=== PATIENT | male | born 1970 | race Caucasian/White ===

== ENCOUNTER 2016-09-29 13:00 | Inpatient (IN) | payer BC, OTHER ==
[~2016-09-29] VITALS: Ht 167.6 cm; Wt 59.0 kg
--- NOTE | 2016-09-29 17:47 | NUR ---
pre-assessment: assessed pt in intake office. pt appeared intoxicated, pt with complaints of stomach and chest discomfort. relayed to pt's state. wanted pt up on unit to order labs as soon as possible. pt's V/S stable b/p 127/ 89 with HR of 118. pt verbalized he will try to sign consent
[2016-09-29] MEDS ORDERED: IBUPROFEN 400 MG TABLET PO PRN ×2 (18:15→20:15)
[2016-09-29] MEDS ORDERED: CLONIDINE HCL 0.1 MG TABLET PO PRN (18:15)
[2016-09-29] MEDS ORDERED: DICYCLOMINE HCL 20 MG TABLET PO PRN ×2 (18:15→20:15)
[2016-09-29] MEDS ORDERED: MAG HYDROX/AL HYDROX/SIMETH 30 ML LIQUID UDC PO PRN ×2 (18:15→20:30)
[2016-09-29] MEDS ORDERED: LOPERAMIDE HCL 2 MG CAPSULE PO PRN ×4 (18:15→20:15)
[2016-09-29] MEDS ORDERED: IV NS 1000 ML 1,000 ML IV PRN (18:15)
[2016-09-29] MEDS ORDERED: diphenhydrAMINE 50 MG CAPSULE PO PRN (18:15)
[2016-09-29] MEDS ORDERED: ACETAMINOPHEN 325 MG TABLET PO PRN (18:15)
[2016-09-29] MEDS ORDERED: ONDANSETRON ODT 4 MG TAB.RAPDIS SL PRN ×2 (18:15→20:30)
[2016-09-29] MEDS ORDERED: ONDANSETRON 4 MG/2 ML VIAL IM PRN ×2 (18:15→20:30)
[2016-09-29] MEDS ORDERED: LORAZEPAM 1 MG TABLET PO PRN ×3 (18:15→20:15)
[2016-09-29] MEDS ORDERED: THIAMINE HCL 200 MG/2 ML VIAL IM ONE ×2 (18:15→20:30)
[2016-09-29] MEDS ORDERED: LORAZEPAM 2 MG/1 ML VIAL IM PRN ×2 (18:15→20:15)
[2016-09-29] MEDS ORDERED: MIRALAX 17 GM POWD.PACK PO PRN ×2 (18:15→20:30)
[2016-09-29] MEDS ORDERED: MAGNESIUM HYDROXIDE 30 ML LIQUID UDC PO PRN ×2 (18:15→20:30)
[2016-09-29 18:52] LABS: BASOPHILS % (AUTO) 0.3 % (0.0-2.0); EOSINOPHILS # (AUTO) 0.2 K/uL (0.0-0.7); EOSINOPHILS % (AUTO) 3.9 % (0.0-7.0); HEMATOCRIT 41.1 % (40-50); HEMOGLOBIN 13.4 G/DL (14.0-18.0); LYMPHOCYTES # (AUTO) 1.5 K/UL (0.8-4.8); LYMPHOCYTES % (AUTO) 34.2 % (20.5-51.5); MEAN CORPUSCULAR HEMOGLOBIN 28.2 UUG (27.0-31.0); MEAN CORPUSCULAR HGB CONC 33 g/dL (32.0-37.0); MEAN CORPUSCULAR VOLUME 86.3 FL (82.0-92.0); MONOCYTES # (AUTO) 0.5 K/UL (0.1-1.30); MONOCYTES % (AUTO) 10.7 % (0.0-11.0); NEUTROPHILS # (AUTO) 2.3 K/UL (1.8-8.9); NEUTROPHILS % (AUTO) 50.9 % (38.5-71.5); PLATELET COUNT (AUTO) 145 K/UL (150-450); RED BLOOD CELL COUNT(AUTO) 4.76 MIL/UL (4.7-6.1); WHITE BLOOD COUNT (AUTO) 4.5 K/UL (4.0-11.2)
[2016-09-29 18:59] LABS: BILIRUBIN,TOTAL 0.3 mg/dL (0.2-1.0); CREATININE 0.8 mg/dL (0.6-1.3); MAGNESIUM 2.1 mg/dL (1.8-2.4); POTASSIUM 3.9 mmol/L (3.5-5.1); TOTAL PROTEIN, SERUM 7.2 g/dL (6.4-8.2)
--- NOTE | 2016-09-29 19:13 | NUR ---
MD communication Pt has ETOH level of 0.37, notified MULUGETA DiggsO at this time.
[2016-09-29 19:28] LABS: THYROID STIMULATING HORMONE 0.485 mIU/mL (0.358-3.740)
[2016-09-29 19:30] LABS: *AMPHETAMINE, URINE NEGATIVE (NEGATIVE); *BARBITURATE, URINE POSITIVE (NEGATIVE); *CANNABINOID, URINE NEGATIVE (NEGATIVE); *COCCAINE, URINE NEGATIVE (NEGATIVE); *OPIATE, URINE NEGATIVE (NEGATIVE); *PHENCYCLIDINE SCREEN,URINE NEGATIVE (NEGATIVE)
--- NOTE | 2016-09-29 19:35 | NUR ---
ADMISSION NOTE: NEW ADMISS[facility] IS [facility] 46 [facility]16; PRE-ADMISSION ASSESSMENT COMPLETED BY DAY SHIFT NURSE. UDS RESULTED POSITIVE FOR ALL BARBITURATES. VS: 103/77, 94, 98.1, 18, 98% SPO2 ON RA. CIWA IS 19: DIAPHORESIS, ANXIETY, NAUSEA, AUDITORY AND VISUAL HALLUCINATIONS . HEIGHT IS 5'6 AND WEIGHT BY STANDING SCALE IS 130 LBS. PT REPORTS NKDA/NKFA. PT DENIES HAVING A PCP. PT ADMITTED UNDER THE CARE OF DR FAJARDO. PT REPORTS THE FOLLOWING SUBSTANCE USE: ETOH (WHISKEY, WINE, BEER): PATIENT REPORTS DRINKING " MUCH ICAN GET MY HANDS ON". PATIENT STATEES THAT HE TYPICALLY DRINKS 2.5 PINTS OF WHISKEY DAILY, BUT ALSO DRINKS WINE AND BEER WHEN AVAILABLE. PATIENT REPORTS FIRST DRINKING 23 YEARS AGO, AND BEGAN DRINKING ON A DAILY BASIS 3 YEARS AGO; PATIENT REPORTS THAT HE HAS BEEN DRINKING VERY HEAVILY FOR THE PAST 15 DAYS. PATIENT REPORTS DRINKING ON THE DAY OF ADMISSION: 4L WINE, 2 BEERS, AND 1.5 PINTS WHISKEY. PT REPORTS THAT HE IS A NON-SMOKER, BUT USES CHEWING TOBACCO. WRITTEN SMOKING CESSATION EDUCATION PROVIDED. PT VERBALIZES UNDERSTANDING. PT DENIES TREATMENT HX; REPORTS HOSPITALIZATION AT [place] [id number] IN THE PAST MONTH FOR ACUTE INTOXICATION. PT REPORTS PMHX OF ANXIETY, DEPRESSION, ALCOHOLIC NEUROPATHY. SURGICAL HX: HERNIA REPAIR. PT DENIES A HX OF WITHDRAWAL INDUCED SZ. HOME MEDICATIONS RECONCILED. PT IS AMBULATORY WITH SLIGHTLY UNSTEADY GAIT. PT IS A&OX4 AND LABILE; REPORTS HAVING AUDIO AND SOMETIMES VISUAL HALLUCINATIONS REGARDING HIS BROTHER THAT 10 YEARS AGO FROM ALCOHOLISM. SKIN ASSESSMENT: INTACT. PT DENIES CURRENT OR HX OF SI/HI, BUT REPORTS CURRENT SEVERE DEPRESSION. LUNGS ARE CTA THROUGHOUT, RESPIRATIONS ARE EVEN AND UNLABORED. PT DENIES COUGH. HEART SOUNDS REGULAR. BOWEL SOUNDS ACTIVE IN ALL QUADRANTS; PT REPORTS LAST BM ON 09/28/16. ABDOMEN IS SOFT, NON-DISTENDED, NON-TENDER.
[2016-09-29 20:00] VITALS: BP 103/77
[2016-09-29] MEDS ORDERED: TUBERCULIN,PURIF.PROT.DERIV. 5 TU/0.1 ML TEST ID ONE (20:30)
--- NOTE | 2016-09-29 20:59 | NUR ---
PRN Zofran: Patient c/o nausea, denies emesis. Administered PRN Zofran as ordered. Will continue to monitor.
--- NOTE | 2016-09-29 21:30 | NUR ---
PRN Reassessment: Patient denies nausea at this time. PRN Zofran effective.
--- NOTE | 2016-09-29 21:44 | NUR ---
PRN Ativan 2mg: Patient c/o nausea, headache, auditory/visual hallucinations, anxiety; patient noted to be labile, with fine tremor. CIWA is 19. Administered PRN Ativan 2mg PO as ordered according to CIWA score. Will continue to monitor.
[2016-09-29] MEDS ORDERED: LORAZEPAM 1 MG TABLET ONE (21:55)
[2016-09-29] MEDS: IV NS 1000 ML 1,000 ML IV PRN (22:10)
--- NOTE | 2016-09-29 22:10 | NUR ---
IV Insertion: As per Dr Wiggins's order, 22g inserted in right forearm. Flushes easily with good return. IV fluids started: NS at 120mls/hr.
--- NOTE | 2016-09-29 22:45 | NUR ---
PRN Reassessment: Patient now denies nausea, auditory/visual hallucination, reports decrease in anxiety. CIWA decreased from 19 to 4 one hour after PRN Ativan 2mg administration.
[2016-09-30] VITALS (7 sets, daily range): BP systolic 86–128; BP diastolic 52–88
--- NOTE | 2016-09-30 04:00 | NUR ---
CIWA Deferred: CIWA is deferred for sleep. V/S stable. All safety precautions are in place. Will continue to monitor. Addendum: 09/30/16 at 0505 by NEFTALY MENA RN Amended: Links added.
[2016-09-30] MEDS ORDERED: GABA-534 PO (04:16)
[2016-09-30] MEDS: IV NS 1000 ML 1,000 ML IV PRN (05:25)
[2016-09-30] MEDS: PANTOPRAZOLE SODIUM 40 MG TABLET.DR PO SCH (06:51)
[2016-09-30] MEDS ORDERED: PANTOPRAZOLE SODIUM 40 MG TABLET.DR PO SCH (07:00)
--- NOTE | 2016-09-30 07:02 | NUR ---
End of Shift Note: Pt is a 46 yo male admitted to [facility] last night for medically-supervised withdrawal from ETOH. Pt reports a PMHx of anxiety, depression, alcoholic neuropathy, and hx of surgical hernia repair. Pt reports NKDA/NKFA. Pt is on a regular/vegetarian diet. Pt is a full code. Pt has a 22G in right forearm running NS at 120 mls/hr. Pt reported drinking 2.5 pints whiskey daily for 3 years. Pt is to start a 5-day Ativan taper 22:45.V/S stable throughout shift. Total fluid intake this shift: 500 ml oral, 2000 ml IV; output: urine x 1 and BM x 0. Pt is currently in bed, and slept 9 hours this shift. All needs attended and met. Pt endorsed to day shift nurse.
--- NOTE | 2016-09-30 07:10 | NUR ---
Start of Shift Child Care Nurse received pt from rn night nurse. Pt is a 46 year old male admitted for ETOH medical detoxification. Pt has been placed on a 5 day Ativan taper. Pt is a full code, on a vegetarian diet and has NKDA. Pt reports PMH of anxiety, depression, ETOH neuropathy and a hernia repair. Pt placed on universal, fall and seizure precautions. Skin is intact. Pt's last CIWA of 4 reported to be at 2245. Child Care Nurse encounters pt In bed resting with eyes closed, even and unlabored respirations. No s/s of distress noted. Bed in low position, wheels locked, side rails up x2, with call light within reach. Will continue to monitor, support and encourage according to plan of care. Addendum: 09/30/16 at 0811 by JAIME THOMAS RN Pt noted to have a 22 gauge IV located in the right FA.
[2016-09-30] MEDS ORDERED: THIAMINE HCL 100 MG TABLET PO SCH (09:00)
[2016-09-30] MEDS ORDERED: MULTIVITAMINS,THERAPEUTIC TABLET PO SCH (09:00)
[2016-09-30] MEDS ORDERED: LORAZEPAM 1 MG TABLET PO SCH (09:00)
[2016-09-30] MEDS ORDERED: TUBERCULIN,PURIF.PROT.DERIV. 5 TU/0.1 ML TEST ID ONE ×2 (09:00)
[2016-09-30] MEDS ORDERED: FOLIC ACID 1 MG TABLET PO SCH (09:00)
[2016-09-30] MEDS: FOLIC ACID 1 MG TABLET PO SCH (10:03)
[2016-09-30] MEDS: LORAZEPAM 1 MG TABLET PO SCH ×4 (10:03→20:57)
[2016-09-30] MEDS: THIAMINE HCL 100 MG TABLET PO SCH (10:03)
[2016-09-30] MEDS: MULTIVITAMINS,THERAPEUTIC TABLET PO SCH (10:03)
[2016-09-30] MEDS ORDERED: LORAZEPAM 1 MG TABLET PO PRN (13:30)
[2016-09-30] MEDS: ACETAMINOPHEN 325 MG TABLET PO PRN (15:51)
--- NOTE | 2016-09-30 15:52 | NUR ---
PRN Administration Pt with c/o headache, and heartburn. Senior Infrastructure Engineer administered medication per MD order, pt tolerated well. Will continue to monitor, support and encourage according to plan of care.
--- NOTE | 2016-09-30 16:37 | NUR ---
IV Fluids Stopped Mandarin Tutor received order from MD to stop NS infusing. Left Hep-lock in place for future use, no signs of redness or swelling, pt tolerating well. Will continue to monitor, support and encourage according to plan of care.
--- NOTE | 2016-09-30 16:52 | NUR ---
PRN Re-assessment Pt states his head still bothers him, but has some relief and his heartburn has subsided, Will continue to monitor, support and encourage according to plan of care.
--- NOTE | 2016-09-30 19:15 | NUR ---
End of Shift Boiler Tender provided report to assistant district attorney nurse, with no further comments, questions, or concerns voiced. Pt is a 46 year old male admitted for ETOH medical detoxification. Pt has been placed on a 5 day Ativan taper, tolerating well. Pt is a full code, on a vegetarian diet and has NKDA. Pt reports PMH of anxiety, depression, ETOH neuropathy and a hernia repair. Pt placed on universal, fall and seizure precautions. Skin is intact. Pts last CIWA of 6 recorded at 1600. Pt has a 22 gauge peripheral IV in his right forearm, currently hep-locked, with no signs of redness, or swelling noted. Pt was administered Tylenol and Maalox at 1552, for a headache and heartburn, reported relief on re-assessment. No s/s of distress noted. Pt has been somnolent and withdrawn, guarded with staff and peers. Pt has been isolative to room and bed, blunted affect with depressed mood. Makes needs known. Pts NS was discontinued. Bed in low position, wheels locked, side rails up x2, with call light within reach.
--- NOTE | 2016-09-30 19:30 | NUR ---
Start of shift: Received patient in bed alert and oriented x4. Speech is clear and able to make his needs known. Encouraged to verbalize feelings and concerns. Denies SI/HI/AVH. Compliant with medications and unit rules. CIWA assessed and charted. Complained of weakness during ambulation. Instructed to call for help and stay sitted before staff is present to help. Call light is with reach. Will continue to monitor.
[2016-09-30] MEDS: GABAPENTIN 300 MG CAPSULE PO SCH (20:56)
[2016-10-01 00:34] VITALS: BP 136/83
[2016-10-01 04:00] VITALS: BP 115/82
--- NOTE | 2016-10-01 04:18 | NUR ---
Unable to assess CIWA. Patient asleep. Respiration even and unlabored. No sign of distress.
--- NOTE | 2016-10-01 06:14 | NUR ---
End of shift: patient is a 46 y/o male admitted for ETOH withdrawal. NKDA. Patient slept 4 hours and 30 minutes. No signs of distress throughout the night. No behavior issues. Complained of nerve pain in bilateral lower extremity. Neurotin 300mg administered. Unable to assess CIWA at 0400. Patient asleep. respiration even and unlabored.
[2016-10-01] MEDS: PANTOPRAZOLE SODIUM 40 MG TABLET.DR PO SCH (06:27)
--- NOTE | 2016-10-01 07:00 | NUR ---
Start of Shift Report Received. Pt is a 46 year old male admitted for ETOH dependency. Pt is full code Vegan diet on fall and seizure precautions denies any food or drug allergies. Pt reports PMH of anxiety, depression, neuropathy and a hernia repair. Pt continues on a 5 day Ativan taper tolerating well. Per shiftman nurse pt received PRN Motrin which was effective. Pt's last CIWA was a 6 taken at 0400. Pt has an IV on his right forearm patent, dry and intact, no fluids currently running. Encouraged pt to drink adequate amount of fluids to facilitate detox process. All safety measures in place bed in lowest locket position, pt slept a total of 6 hours last night. All needs met will continue to monitor and provide care.
[2016-10-01 08:00] VITALS: BP 134/99
[2016-10-01] MEDS ORDERED: LORAZEPAM 1 MG TABLET PO SCH (09:00)
[2016-10-01] MEDS: GABAPENTIN 300 MG CAPSULE PO SCH ×2 (09:00→09:30)
[2016-10-01] MEDS ORDERED: PATIENT MAY USE OWN MED- MD OK PO SCH (09:00)
[2016-10-01] MEDS: FOLIC ACID 1 MG TABLET PO SCH (09:30)
[2016-10-01] MEDS: MULTIVITAMINS,THERAPEUTIC TABLET PO SCH (09:30)
[2016-10-01] MEDS: LORAZEPAM 1 MG TABLET PO SCH ×3 (09:30→20:48)
[2016-10-01] MEDS: THIAMINE HCL 100 MG TABLET PO SCH (09:30)
[2016-10-01 12:00] VITALS: BP 132/88
[2016-10-01 12:09] LABS: HEPATITIS B SURFACE AG Negative (Negative)
[2016-10-01] MEDS ORDERED: NAPROXEN 250 MG TABLET PO ONE (13:00)
[2016-10-01 16:00] VITALS: BP 140/99
[2016-10-01] MEDS: METHYL SALICYLATE/MENTHOL CREAM 28 GM TUBE TOP SCH (17:00)
--- NOTE | 2016-10-01 19:13 | NUR ---
End of Shift Report given. Pt is a 46 year old male admitted for ETOH dependency. Pt is full code Vegan diet on fall and seizure precautions denies any food or drug allergies. Pt reports PMH of anxiety, depression, neuropathy and a hernia repair. Pt continues on a 5 day Ativan taper tolerating well. VS monitored closely q 4 hours. Withdrawal symptoms were closely monitored. Initial CIWA 7. Patient encouraged adequate PO fluid intake as tolerated. Patient presented with tremors and anxiety during the day. Last CIWA 4. Per patient, Ativan has been helping him with his withdrawal symptoms. Pt ate all of his meals. No PRN medications given during the day. Patient encouraged to attend group therapies/sessions to learn new coping skills to recent relapse, patient denies SI/HI. Participated in group and therapy sessions. All needs met and attended
[2016-10-01 20:00] VITALS: BP 131/91
--- NOTE | 2016-10-01 20:00 | NUR ---
Start of Shift Pt is a 46 year old male admitted for ETOH dependence, placed on 5 day Ativan taper. Pt reported consuming Whiskey/Beer/Wine Whiskey 2.5 pints/daily. PMH: Anxiety, depression, alcoholic neuropathy and hernia repair. NKA, vegetarian diet fall/seizure precautions (denies hx of seizures) and full code. Upon assessment, pt represents with anxiety, tremors visible, reports chills and body aches with mild lightheadedness, respirations even/unlabored, denies SOB/chest pain, denies n/v/d, bowel sounds active x4, abdomen soft. Pt is scheduled for discharge tomorrow. Safety measures in place, call light within reach, side rails up x2, bed locked and in low position. Will continue to monitor. Addendum: 10/01/16 at 2150 by GEORGE CUADRA RN CORRECTION: PT IS NOT SCHEDULED FOR DISCHARGE TOMORROW.
[2016-10-01] MEDS: PROPRANOLOL HCL 10 MG TABLET PO SCH (20:48)
[2016-10-01] MEDS: NAPROXEN 250 MG TABLET PO SCH (20:49)
[2016-10-01] MEDS: diphenhydrAMINE 50 MG CAPSULE PO PRN (22:09)
--- NOTE | 2016-10-01 22:09 | NUR ---
PRN Administration Pt reports difficulty falling asleep. Benadryl 50mg PRN administered. Safety measures in place. Will continue to monitor.
--- NOTE | 2016-10-01 23:09 | NUR ---
PRN Reassessment Upon reassessment, pt is sleeping, no acute s/s of distress noted, respirations even/unlabored. Safety measures in place. Will continue to monitor.
[2016-10-02] VITALS: BP 138/99
[2016-10-02] MEDS: CLONIDINE HCL 0.1 MG TABLET PO PRN ×2 (00:41→21:59)
--- NOTE | 2016-10-02 00:41 | NUR ---
PRN Administration Pt reports, "I feel anxious, I woke up and can't sleep!" Pt is anxious, restless, skin flushed, unable to sit still. Clonidine 0.1mg PRN administered. Safety measures in place. Will continue to monitor.
--- NOTE | 2016-10-02 01:41 | NUR ---
PRN Reassessment Pt is sleeping, no s/s of acute distress noted Safety measures in place. Will continue to monitor.
--- NOTE | 2016-10-02 04:00 | NUR ---
Pt refused to be woken up for 0400 VS CIWA deferred d/t pt sleeping to assess while pt is awake as ordered. Safety measures in place. Will continue to monitor.
[2016-10-02] MEDS: PANTOPRAZOLE SODIUM 40 MG TABLET.DR PO SCH (06:20)
--- NOTE | 2016-10-02 07:00 | NUR ---
End of Shift Pt is a 46 year old male admitted for ETOH dependence, placed on 5 day Ativan taper. Pt reported consuming Whiskey/Beer/Wine Whiskey 2.5 pints/daily. PMH: Anxiety, depression, alcoholic neuropathy and hernia repair. NKA, vegetarian diet fall/seizure precautions (denies hx of seizures) and full code. During shift, pt represented with anxiety, tremors visible, reports chills and body aches with mild lightheadedness scheduled taper medications administered during shift, CIWA 5. IV on right forearm removed, site is dry and intact. Benadryl 50mg PRN administered during shift for sleep. Clonidine 0.1mg PRN administered for anxiety, as noted in separate note. Pt slept for 6 hours, intake of 1000 ml PO, voids x2 and stool x0. Safety measures in place, call light within reach, side rails up x2, bed locked and in low position. Endorsed to day shift nurse.
--- NOTE | 2016-10-02 07:05 | NUR ---
Start Of Shift Report Received. Pt is a 46 year old male admitted for ETOH dependency. Pt is full code Vegan diet on fall and seizure precautions denies any food or drug allergies. Pt reports PMH of anxiety, depression, neuropathy and a hernia repair. Pt continues on a 5 day Ativan taper tolerating well. Per shift mgr nurse pt received PRN Benadryl and a Clonidine which was effective. Pt's last CIWA was a 5 taken at 0400. Pt had his IV d/c. Encouraged pt to drink adequate amount of fluids to facilitate detox process. All safety measures in place bed in lowest locket position, pt slept a total of 6 hours last night. All needs met will continue to monitor and provide care.
[2016-10-02 08:00] VITALS: BP 99/63
[2016-10-02] MEDS ORDERED: LORAZEPAM 1 MG TABLET PO SCH (09:00)
[2016-10-02] MEDS: METHYL SALICYLATE/MENTHOL CREAM 28 GM TUBE TOP SCH ×2 (09:00→17:00)
[2016-10-02] MEDS: FOLIC ACID 1 MG TABLET PO SCH (09:10)
[2016-10-02] MEDS: MULTIVITAMINS,THERAPEUTIC TABLET PO SCH (09:11)
[2016-10-02] MEDS: LORAZEPAM 1 MG TABLET PO SCH ×4 (09:11→20:09)
[2016-10-02] MEDS: FAMOTIDINE 20 MG TABLET PO SCH (09:11)
[2016-10-02] MEDS: NAPROXEN 250 MG TABLET PO SCH ×2 (09:11→20:09)
[2016-10-02] MEDS: THIAMINE HCL 100 MG TABLET PO SCH (09:12)
[2016-10-02] MEDS: PROPRANOLOL HCL 10 MG TABLET PO SCH ×2 (09:12→20:08)
[2016-10-02 12:00] VITALS: BP 136/96
[2016-10-02 16:00] VITALS: BP 109/76
[2016-10-02 20:00] VITALS: BP 143/108
--- NOTE | 2016-10-02 20:00 | NUR ---
Start of Shift Pt is a 46 year old male admitted for ETOH dependence, placed on 5 day Ativan taper. Pt reported consuming Whiskey/Beer/Wine Whiskey 2.5 pints/daily. PMH: Anxiety, depression, alcoholic neuropathy and hernia repair. NKA, vegetarian diet fall/seizure precautions (denies hx of seizures) and full code. Upon assessment, pt represents with anxiety, presents with a depressed mood, verbalizes feeling irritated/agitated. Reports chills and body aches with, respirations even/unlabored, denies SOB/chest pain, denies n/v/d, bowel sounds active x4, abdomen soft. Safety measures in place, call light within reach, side rails up x2, bed locked and in low position. Will continue to monitor.
--- NOTE | 2016-10-02 21:59 | NUR ---
PRN Administration Pt reports, "I feel anxious and restless" Pt is anxious, restless, skin flushed, unable to sit still, is in emotional distress, irritation/agitation noted. Clonidine 0.1mg PRN administered. Safety measures in place. Will continue to monitor.
--- NOTE | 2016-10-02 22:59 | NUR ---
PRN Reassessment Upon reassessment, pt is in room in bed, watching TV. Pt states, "I feel better then I did". Needs met, safety measures in place, will continue to monitor.
[2016-10-03] VITALS: BP 110/70
[2016-10-03] MEDS: PANTOPRAZOLE SODIUM 40 MG TABLET.DR PO SCH (06:26)
--- NOTE | 2016-10-03 07:00 | NUR ---
End of Shift Pt is a 46 year old male admitted for ETOH dependence, placed on 5 day Ativan taper. Pt reported consuming Whiskey/Beer/Wine Whiskey 2.5 pints/daily. PMH: Anxiety, depression, alcoholic neuropathy and hernia repair. NKA, vegetarian diet fall/seizure precautions (denies hx of seizures) and full code. During shift, pt represented with anxiety, presents with a depressed mood, verbalizes feeling irritated/agitated. Reports chills and body aches with scheduled taper medications administered along with Clonidine 0.1mg PRN, effective in management of s/s of withdrawal as reported per pt, CIWA 4. Pt slept for 7 hours, intake of 1000 ml PO, voids x4 and stool x0. Safety measures in place, call light within reach, side rails up x2, bed locked and in low position. Endorsed to day shift nurse.
--- NOTE | 2016-10-03 07:15 | NUR ---
Start of Shift Proof Load Mechanic received pt from retail shift supervisor nurse. Pt is a 46 year old male admitted for ETOH medical detoxification. Pt has been placed on a 5 day Ativan taper. Pt is a full code, on a vegetarian diet and has NKDA. Pt reports PMH of anxiety, depression, ETOH neuropathy and a hernia repair. Pt placed on universal, fall and seizure precautions. Skin is intact. Pt's last CIWA of 4 reported to be at 0000. Proof Load Mechanic encounters pt in [place], pt is A/O x4, able to make needs known and cooperative. Flat affect with an irritable mood. No s/s of distress noted. Bed in low position, wheels locked, side rails up x2, with call light within reach. Will continue to monitor, support and encourage according to plan of care.
[2016-10-03 08:18] VITALS: BP 119/88
[2016-10-03] MEDS ORDERED: LORAZEPAM 1 MG TABLET PO SCH (09:00)
[2016-10-03] MEDS: FOLIC ACID 1 MG TABLET PO SCH (09:29)
[2016-10-03] MEDS: THIAMINE HCL 100 MG TABLET PO SCH (09:29)
[2016-10-03] MEDS: FAMOTIDINE 20 MG TABLET PO SCH (09:29)
[2016-10-03] MEDS: NAPROXEN 250 MG TABLET PO SCH ×2 (09:29→21:09)
[2016-10-03] MEDS: LORAZEPAM 1 MG TABLET PO SCH ×3 (09:29→21:09)
[2016-10-03] MEDS: MULTIVITAMINS,THERAPEUTIC TABLET PO SCH (09:29)
[2016-10-03] MEDS: METHYL SALICYLATE/MENTHOL CREAM 28 GM TUBE TOP SCH ×2 (09:30→17:10)
[2016-10-03] MEDS: PROPRANOLOL HCL 10 MG TABLET PO SCH ×2 (09:30→21:10)
[2016-10-03 12:45] VITALS: BP 126/85
[2016-10-03] MEDS: ACETAMINOPHEN 325 MG TABLET PO PRN (14:45)
--- NOTE | 2016-10-03 14:45 | NUR ---
PRN Administration Pt requests Tylenol for headache 08/12, after attempting non-pharmacological interventions. Bundle Person administered medication as per MD order and pt tolerated well. Will continue to monitor, support and encourage according to plan of care.
--- NOTE | 2016-10-03 15:45 | NUR ---
PRN Re-assessment Pt endorses relief, stating, " yes, I fell better." Rates pain as 2/10. Will continue to monitor, support and encourage according to plan of care.
[2016-10-03 16:40] VITALS: BP 123/84
--- NOTE | 2016-10-03 19:21 | NUR ---
End of Shift Water Resource Agent provided report to maintenance supervisor 2nd shift nurse with no further comments, questions or concerns voiced. Pt is a 46 year old male admitted for ETOH medical detoxification. Pt has been placed on a 5 day Ativan taper, tolerating well. Pt is a full code, on a vegetarian diet and has NKDA. Pt reports PMH of anxiety, depression, ETOH neuropathy and a hernia repair. Pt placed on universal, fall and seizure precautions. Skin is intact. Pt's last CIWA of 2 reported to be at 1600. Pt has been compliant thru out the day, calm and cooperative. Blunted/Flat affect with a depressed mood. A/O x4. Administered Tylenol for headache at 1415. No s/s of distress noted. Bed in low position, wheels locked, side rails up x2, with call light within reach.
[2016-10-03 20:00] VITALS: BP 117/86
--- NOTE | 2016-10-03 20:00 | NUR ---
Start of Shift: Pt is a 46 year old male admitted for ETOH medical detoxification. Pt has been placed on a 5 day Ativan tapering, tolerating well. Pt is a full code, on a vegetarian diet and has NKDA. Pt reports PMH of anxiety, depression, ETOH neuropathy and a hernia repair. Pt placed on universal, fall and seizure precautions. Skin is intact. Last CIWA of 2, pt has been compliance with medications treatment. Pt has been calm and cooperative, no s/s of distress noted. Bed in low position, wheels locked, side rails up x2, with call light within reach. Will continue to monitor.
--- NOTE | 2016-10-04 | NUR ---
VITAL SIGN: Pt is stable and resting well. no distress noted. Addendum: 10/04/16 at 0023 by PJ SANDERS RN Amended: Links added.
--- NOTE | 2016-10-04 04:00 | NUR ---
VITAL SIGN: Pt is resting well, no distress noted. Addendum: 10/04/16 at 0417 by PJ SANDERS RN Amended: Links added.
--- NOTE | 2016-10-04 06:54 | NUR ---
End of Shift note: Pt is a 46 year old male admitted for ETOH medical detoxification. Pt has been placed on a 5 day Ativan tapering. Pt is a full code, on a vegetarian diet and has NKDA. Pt reports PMH of anxiety, depression, ETOH neuropathy and a hernia repair. Pt c/o ear pain during shift; gave scheduled Naproxen for pain. No prn meds given during shift, last CIWA was a 0. Pt slept 7.5 hrs during shift. All pertinent information endorsed to am nurse. Pt will continue to monitor by staff.
--- NOTE | 2016-10-04 07:21 | NUR ---
START OF SHIFT NOTE: Received report from shift supervisor nurse. Pt is a 46 year old male admitted for ETOH dependence, placed on 5 day Ativan taper. Tolerating well. Pt is alert and oriented X4. Color good, skin warm and dry. Respirations even and unlabored. Resting in bed. Safety precautions observed. call light within reach.
[2016-10-04] MEDS: THIAMINE HCL 100 MG TABLET PO SCH (08:54)
[2016-10-04] MEDS: NAPROXEN 250 MG TABLET PO SCH ×2 (08:54→21:11)
[2016-10-04] MEDS: FOLIC ACID 1 MG TABLET PO SCH (08:55)
[2016-10-04] MEDS: PROPRANOLOL HCL 10 MG TABLET PO SCH ×2 (08:55→21:14)
[2016-10-04] MEDS: FAMOTIDINE 20 MG TABLET PO SCH (08:55)
[2016-10-04] MEDS: MULTIVITAMINS,THERAPEUTIC TABLET PO SCH (08:55)
[2016-10-04] MEDS: METHYL SALICYLATE/MENTHOL CREAM 28 GM TUBE TOP SCH ×2 (08:55→16:26)
[2016-10-04] MEDS ORDERED: LORAZEPAM 1 MG TABLET PO SCH ×3 (09:00)
[2016-10-04 09:29] VITALS: BP 125/90
--- NOTE | 2016-10-04 09:32 | NUR ---
VSS CIWA 4. Major complaint anxiety.
[2016-10-04] MEDS ORDERED: PROP10TA29 PO (10:18)
[2016-10-04] MEDS ORDERED: DIPH50CA37 PO (10:18)
[2016-10-04] MEDS ORDERED: FAMO20TA8 PO (10:18)
[2016-10-04] MEDS ORDERED: NAPR250T2 PO (10:18)
[2016-10-04] MEDS ORDERED: HYDROXYZINE PAMOATE 25 MG CAPSULE PO PRN (11:30)
--- NOTE | 2016-10-04 11:55 | NUR ---
Report given to EULA Lake who will assume care of patient.
--- NOTE | 2016-10-04 11:56 | NUR ---
ASSUMED CARE pt endorsement report received from primary nurse. All pertinent information discussed. Will cont to monitor closely. Safety measures in place, Call light within reach. Will cont to monitor.
[2016-10-04 12:00] VITALS: BP 141/99
--- NOTE | 2016-10-04 13:28 | NUR ---
Therapist prompted client about group times. Client stated he will attend all groups.
[2016-10-04] MEDS: CLONIDINE HCL 0.1 MG TABLET PO PRN (14:52)
--- NOTE | 2016-10-04 14:52 | NUR ---
PRN CLONIDINE/VISTARIL Pt is c/o of anxiety, agitation, sweats. Administered Clonidine0.1mg /Vistaril 25mg as ordered. Will cont to monitor and reassess.
[2016-10-04 15:06] LABS: *AMPHETAMINE, URINE NEGATIVE (NEGATIVE); *BARBITURATE, URINE NEGATIVE (NEGATIVE); *CANNABINOID, URINE NEGATIVE (NEGATIVE); *COCCAINE, URINE NEGATIVE (NEGATIVE); *OPIATE, URINE NEGATIVE (NEGATIVE); *PHENCYCLIDINE SCREEN,URINE NEGATIVE (NEGATIVE)
--- NOTE | 2016-10-04 15:52 | NUR ---
REASSESSMENT Pt reported mediation effective, anxiety and agitation subside and sweats decreased.
[2016-10-04 16:00] VITALS: BP 129/85
--- NOTE | 2016-10-04 19:02 | NUR ---
START OF SHIFT NOTE: Patient endorsed by day shift nurse. Report received. Patient is a 46 year old male admitted to [facility] on 10/04/2016 for medically supervised withdrawal from Alcohol. Patient completed ordered 5 day Ativan Taper with tolerated well without ASE. Patient remains complain with treatment, medications, and diet regime. Patient reports NKA. Patient is on Full Code, Regular Diet. Patient is on Fall and Seizures Precautions. Past Medical History: Alcohol use disorder, Alcohol induced peripheral neuropathy, Anxiety disorder, Depressive disorder, Nicotine dependence. Smoking: # packs per year (chews tobacco daily). Past Surgical History: Hernia Repair. Past Family History: Alcohol use disorder, Heart disease, Hypertension. At the time of endorsement patient is in his room. Patient is alert and oriented x4. PRN Vistaril and Clonidine was given, and was effective during day shift. CIWA 2. Patient presented with mild anxiety and agitation. Patient denies SI/HI. Respirations unlabored and even. Patient denies SOB and chest pain. Lungs Sounds are clear bilaterally. Bowel Sounds active in all x4 quadrants. PERRLA, brisk capillary refill, body shop worker equal and strong. Skin is intact, warm and dry to touch. VS WNL. Encouraged fluids as tolerated. Safety measures on place. Call light within reach, bed in lowest position and locked, padded rails up bilaterally rails up bilaterally. Will continue to monitor closely.
--- NOTE | 2016-10-04 19:02 | NUR ---
END OF SHIFT NOTE Gave report to night nurse, 46 year old male admitted for ETOH dependence. Pt completed his taper tolerated well. Pt has been cooperative with medication regime and plan of care. Pt has been attending group and activities. Vital signs remained stable.Pt received PRN Clonidine/ Vistaril noted to be effective. Pt scheduled for discharge in AM. UDS completed. All safety measures in place, Call light within reach. Pt endorsed to night nurse in stable condition.
[2016-10-04 20:00] VITALS: BP 115/79
[2016-10-04] MEDS: ACETAMINOPHEN 325 MG TABLET PO PRN (21:11)
[2016-10-04] MEDS: diphenhydrAMINE 50 MG CAPSULE PO PRN (21:12)
--- NOTE | 2016-10-04 21:12 | NUR ---
PRN BENADRYL 50 MG 1 CAP PO AND PRN TYLENOL 650 MG 2 TAB PO ADMINISTRATED Patient c/o left ear pain 7/10 and insomnia. Patient's assessed. VS WNL. No discharges from left ear. PRN Tylenol 650 mg 2 tabs PO for pain level 7/10 on the left ear and PRN Benadryl 50 mg 1 cap PO for insomnia administrated at 2112 on 10/04/2016 to patient as ordered. Patient tolerated well. Safety measures on place. Call light within reach, bed in lowest position and locked, padded rails up bilaterally.
--- NOTE | 2016-10-04 22:12 | NUR ---
RE-ASSESSMENT Patient re-assessed. Patient is sleeping. RR: 14. Pain "0/10". PRN Medications was effective. All needs met. Safety measures on place. Call light within reach, bed in lowest position and locked, padded rails up bilaterally.
--- NOTE | 2016-10-05 00:18 | NUR ---
VS REFUSED AND CIWA DEFERRED Patient refused to be woken up for 0000 VS. CIWA deferred d/t patient sleeping to assess while patient is awake. Safety measures on place by hospital policy: Call light within reach, bed in lowest position and locked, padded side rails up x2. Will continue to monitor.
[2016-10-05 04:00] VITALS: BP 93/62
--- NOTE | 2016-10-05 07:08 | NUR ---
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 Report given. Patient is a 46 year old male admitted to [facility] on 10/04/2016 for medically supervised withdrawal from Alcohol. Patient completed ordered 5 day Ativan Taper with tolerated well without ASE. Patient remains complain with treatment, medications, and diet regime. Patient reports NKA. Patient is on Full Code, Regular Diet. Patient is on Fall and Seizures Precautions. Past Medical History: Alcohol use disorder, Alcohol induced peripheral neuropathy, Anxiety disorder, Depressive disorder, Nicotine dependence. Smoking: # packs per year (chews tobacco daily). Past Surgical History: Hernia Repair. Past Family History: Alcohol use disorder, Heart disease, Hypertension. At the time of endorsement patient is in his room. Patient is alert and oriented x4. PRN Tylenol 650 mg 2 tabs PO for pain level 7/10 on the left ear and PRN Benadryl 50 mg 1 cap PO for insomnia administrated to patient were effective. CIWA 2 at 0400. Patient presented with mild anxiety, agitation, insomnia, and sweats. Patient denies SI/HI. Respirations unlabored and even. Patient denies SOB and chest pain. Skin is intact, warm and dry to touch. VS at 0400: T: 97.5; BP: 93/62; HR: 61; RR: 15; O2 SAT: 100%, pain level:"0/10". Respirations unlabored and even. Skin is intact, warm and dry to touch. Encouraged fluids as tolerated. Patient scheduled discharging today, on 10/05/2016 per MD's order. UDS labs results placed in chart. Patient slept 5 hours, intake 2,301 ml, voided x4; stool: 2. All needs met. Safety measures on place. Call light within reach, bed in lowest position and locked, padded rails up bilaterally.
--- NOTE | 2016-10-05 07:30 | NUR ---
START OF SHIFT Pt 46 y/o male admitted for etoh dependence. Pt received in room awake watching television. Pt alert and oriented to name, place, and time. Perrla. Skin warm and dry to touch. Respirations even and unlabored. No hand tremors noted. Pt is scheduled to be discharged today. It was reported that pt slept for 5 hours last night. Bed on lowest position with side rails x2 up for safety. Call light within reach. No distress noted at this time.
[2016-10-05 08:00] VITALS: BP 116/80
[2016-10-05] MEDS: FAMOTIDINE 20 MG TABLET PO SCH (08:28)
[2016-10-05] MEDS: MULTIVITAMINS,THERAPEUTIC TABLET PO SCH (08:29)
[2016-10-05] MEDS: FOLIC ACID 1 MG TABLET PO SCH (08:29)
[2016-10-05] MEDS: THIAMINE HCL 100 MG TABLET PO SCH (08:29)
[2016-10-05] MEDS: NAPROXEN 250 MG TABLET PO SCH (08:29)
[2016-10-05 08:30] VITALS: BP 116/72
[2016-10-05] MEDS: PROPRANOLOL HCL 10 MG TABLET PO SCH (08:30)
[2016-10-05] MEDS: METHYL SALICYLATE/MENTHOL CREAM 28 GM TUBE TOP SCH (08:37)
--- NOTE | 2016-10-05 09:57 | NUR ---
DISCHARGE Pt 46 y/o male admitted for etoh dependence. Pt alert and oriented to name, place, and time. Perrla. Skin warm and dry to touch. Respirations even and unlabored. Perrla. No hand tremors noted. All discharge papers, prescriptions, TB results, and UDS packed in pt bag. No home medications or belongings in cabinet noted. Pt excited about discharge. Pt discharged to [facility] via private transport. VS wnl. No distress noted.
== END 2016-10-05 09:57 | disposition other institution (70) | DRG 895 ==
LOC: SRC 17:59 → UNDOADMIN 17:59 → SRC 19:29
PROVIDERS: ADMIT Internal Medicine; ATTEND Internal Medicine
PROC: HZ2ZZZZ Detoxification Services for Substance Abuse Treatment (ICD-10-PCS; principal; 2016-09-29)
PROC: HZ41ZZZ Group Counseling for Substance Abuse Treatment, Behavioral (ICD-10-PCS; 2016-10-01)
PROC: HZ31ZZZ Individual Counseling for Substance Abuse Treatment, Behavioral (ICD-10-PCS; 2016-10-02)
DX: F10.230 Alcohol dependence with withdrawal, uncomplicated (principal); F17.220 Nicotine dependence, chewing tobacco, uncomplicated; D69.6 Thrombocytopenia, unspecified; D64.9 Anemia, unspecified; F10.220 Alcohol dependence with intoxication, uncomplicated; K70.10 Alcoholic hepatitis without ascites; G62.1 Alcoholic polyneuropathy; Y90.8 Blood alcohol level of 240 mg/100 ml or more; Z82.49 Family history of ischemic heart disease and other diseases of the circulatory system; Z81.1 Family history of alcohol abuse and dependence; F32.9 Major depressive disorder, single episode, unspecified; R26.81 Unsteadiness on feet; Z59.0 Homelessness; R73.9 Hyperglycemia, unspecified; F41.0 Panic disorder [episodic paroxysmal anxiety]
CPT/HCPCS: 36415; 70030-TC; 80307; 80345; 83690; 83735; 84443; 85025; 86580; 86592; 86705; 86803; 87340; 87806; A4663; G0480; J3411; J7030; Q0162; Q0163